=== PATIENT | male | born 1965 | race Caucasian/White ===

== ENCOUNTER 2018-03-31 12:34 | Emergency (ER) | payer OTHER ==
[~2018-03-31] VITALS: Ht 182.9 cm; Wt 100.0 kg
[2018-03-31] MEDS ORDERED: morphine 4 MG/ML inj SYRINge IV ONE ×3 (12:45→13:10)
--- NOTE | 2018-03-31 12:50 | NUR ---
pt to xray
[2018-03-31] MEDS ORDERED: HYDROmorphone 2mg/ml vial IV PRN (13:00)
[2018-03-31] MEDS ORDERED: ondansetron/PF 4mg/2ml inj IV ONE (13:05)
[2018-03-31] MEDS ORDERED: ceFAZolin 1000mg inj IV ONE (13:10)
[2018-03-31] MEDS ORDERED: HYDROmorphone 1 mg/ml syringe IV PRN (13:10)
[2018-03-31] MEDS ORDERED: TETanus/Pertussis (Acell)/Diphther VAC/PF (Tdap-Adult) 0.5ml syringe IM ONE (13:10)
[2018-03-31] MEDS ORDERED: cefazolin/dext.iso 2gm/50ml 50 ML IV ONE (13:20)
[2018-03-31 14:00] VITALS: BP 182/116
--- NOTE | 2018-03-31 14:03 | NUR ---
PT STABLE, PT EXPRESSED THAT HIS PAIN IS CONTROLLED. WOUND CLEANED AND NEW DRESSING APPLIED. PT AWAITING TRANSFER AT THIS TIME. FAMILY CALLED AND NOTIFIED.
[2018-03-31] MEDS ORDERED: HYDROmorphone 1 mg/ml syringe IV ONE ×2 (15:00→15:50)
[2018-03-31] MEDS ORDERED: LIDOcaine 1% 30ml preserv. free vial IJ STA (15:09)
--- NOTE | 2018-03-31 15:53 | NUR ---
REPORT CALLED TO ESTHELA PAC. REPORT GIVEN TO FLIGHT TEAM
== END 2018-03-31 16:07 | disposition short-term general hospital (02) ==
LOC: ER 12:34
DX: S68.125A Partial traumatic metacarpophalangeal amputation of left ring finger, initial encounter (principal); S61.217A Laceration without foreign body of left little finger without damage to nail, initial encounter; W31.2XXA Contact with powered woodworking and forming machines, initial encounter; Y93.89 Activity, other specified; Y92.69 Other specified industrial and construction area as the place of occurrence of the external cause; Y99.9 Unspecified external cause status
CPT/HCPCS: 73120; 73130; 90471; 90715; 96365; 96375; 96376; 99285; J0690; J1170; J2270; J2405; J3490

== ENCOUNTER 2024-12-05 21:54 | Inpatient (IN) | payer MEDICAID, OTHER ==
[~2024-12-05] VITALS: Ht 182.9 cm; Wt 80.0 kg
--- NOTE | 2024-12-05 22:12 | ELECTROCARDIOGRAPH REPORT ---
[facility] Test Date: 2024-12-05 Test Time: 22:10:37 Pat Name: MADALYN MERCEDES Department: EMERGENCY ROOM Room: Gender: M Supervisor Mixing: CALE : 1965 Requested By: LENNY JIMENEZ Order Number: [id number] Reading MD: Measurements Intervals [place] Rate: 87 P: -14 OH: 197 QRS: -4 QRSD: 104 T: 41 QT: 382 QTc: 460 Interpretive Statements Sinus arrhythmia Ventricular premature complex Probable left atrial enlargement Anteroseptal infarct, age indeterminate Baseline wander in lead(s) V2,V5,V6 Please click the below link to view image of tracing.
[2024-12-05] MEDS: morphine 4 MG/ML inj SYRINge IV ONE (22:53)
[2024-12-05] MEDS: glucagon, human recombinant 1mg kit IV ONE (22:53)
[2024-12-05] MEDS: ondansetron/PF 4mg/2ml inj IV ONE (22:53)
[2024-12-05] MEDS: fentaNYL/PF 50MCG/1 ML 2ML syringe IV ONE ×2 (23:05→23:29)
--- NOTE | 2024-12-05 23:06 | Physician Documentation ---
History of Present Illness ~ Chief Complaint: Chest Pain Stated Complaint: NEAR CHOKING/CP Time Seen by MD: 22:26 Mode of Arrival: EMS HPI This is a 59-year-old gentleman who presents for evaluation of substernal chest pain or foreign body sensation after he choked on a piece of chicken. He states that he had prior choking episodes. He attempted to vomit the piece of chicken the but had some blood-tinged vomit. He does have known history of esophageal varices, but denies any gross hematemesis. No palliating or aggravating factors for chest pain. No shortness a breath. He is able to control his secretions and drink, but nothing seems to be helping. This is similar to prior food bolus impaction episodes. The pain is not ripping or tearing. It isn't migratory. It isn't accompanied by focal deficits. Denies any other symptoms. Medication Reconciliation Allergies: Coded Allergies: No Known Allergies (Unverified , 03/31/18) Past Medical History Past Medical History: No Pertinent History Past Surgical History: noncontributory Alcohol Use: Occasionally Lives In: Home Review of Systems ROS 10 point review of systems was performed and unless noted above in HPI is negative for acute process/complaint. Physical Exam Vital Signs: Temperature: 98.3, Source: Oral, Heart Rate: 72, Respiratory Rate: 20, BP: 156/104, Pulse Oximetry: 100, Weight: 80.000 Physical Exam GENERAL: Awake, alert, oriented, GCS 15, no apparent distress, non-toxic appearing, answers questions, follows commands appropriately. Examined in bed 7. HEENT: Atraumatic, normocephalic, pupils equal, extraocular muscles intact, sclerae anicteric, mucus membranes moist, oropharynx is clear, no stridor. NECK: supple, full active range of motion, trachea midline, no thyromegaly, no lymphadenopathy, no JVD. CARDIOVASCULAR: regular rate/rhythm, no murmurs/gallops/rubs, Pulses are 2+ in all extremities and symmetric. Capillary refill less than 2 seconds. PULMONARY: Nonlabored, good air movement ,no respiratory distress, speaking in full sentences, clear to auscultation bilaterally, no wheezing, no ronchi, no rales, no accessory muscle use. GASTROINTESTINAL: Soft, non-tender, non-distended, normal active bowel sounds, no organomegaly, no pulsatile masses, no CVA tenderness. NEUROLOGIC: Lucid with normal mental status. Normal facial symmetry. Moves all extremities symmetrically and with purpose. No truncal ataxia. Speech is fluid without evidence of dysarthria or aphasia, no focal deficits appreciated. MUSCULOSKELETAL: There is full range of motion of all extremities. There is no joint pain or joint swelling or joint erythema. There is no muscle pain or tenderness or swelling. EXTREMITIES: warm, well-perfused, no cyanosis, no clubbing, no edema, no acute deformities. Skin: warm, dry, no rashes or lesions, no jaundice, no petechiae orpurpura. No ecchymosis. PSYCHIATRIC: Normal affect, normal insight, normal concentration. Focused exam: [] Progress Results/Orders Results/Orders Orders - LENNY JIMENEZ DO Chest,Single View (12/05/24 22:33) Hs Troponin I W Calculations (12/06/24 00:33) Completed Orders - LENNY JIMENEZ DO Electrocardiogram (12/05/24 22:08) Cbc/Diff (12/05/24 22:33) Chest,Single View (12/05/24 22:33) PBNP (12/05/24 22:33) MG (12/05/24 22:33) CMP (12/05/24 22:33) Hs Troponin I W Calculations (12/05/24 22:33) Morphine 4mg/Ml Inj. (Morphine Inj.) (12/05/24 22:35) Ondansetron Inj. (Zofran 4mg/2ml Vial) (12/05/24 22:35) Glucagon, Human Recombinant (Glucagen In (12/05/24 22:35) Fentanyl/Pf (Fentanyl 0.05 Mg/Ml Syringe (12/05/24 23:05) Fentanyl/Pf (Fentanyl 0.05 Mg/Ml Syringe (12/05/24 23:05) Medications Received in ER Medications (Trade) Dose Ordered Sig/Emil Route PRN Reason Start Time Stop Time Status Last Admin Dose Admin (morphine inj.) 4 mg ONCE ONCE IV 12/05/24 22:35 12/05/24 22:37 DC 12/05/24 22:53 4 MG (Zofran 4mg/2ml vial) 4 mg ONCE ONCE IV 12/05/24 22:35 12/05/24 22:37 DC 12/05/24 22:53 4 MG (Glucagen inj) 1 mg ONCE ONCE IV 12/05/24 22:35 12/05/24 22:37 DC 12/05/24 22:53 1 MG (fentaNYL 0.05 MG/ML syringe) 50 mcg ONCE ONCE IV 12/05/24 23:05 12/05/24 23:13 DC 12/05/24 23:29 50 MCG Vital Signs 12/05/24 12/05/24 22:11 22:20 Temp 98.3 Pulse 72 Resp 20 20 B/P (MAP) 156/104 Pulse Ox 100 Laboratory Tests Test 12/05/24 22:53 White Blood Count 6.9 Red Blood Count 4.70 Hemoglobin 14.4 Hematocrit 42.6 Mean Corpuscular Volume 90.7 Mean Corpuscular Hemoglobin 30.7 Mean Corpuscular Hemoglobin Concent 33.9 Red Cell Distribution Width 13.9 Platelet Count 203 Mean Platelet Volume 8.3 Neutrophils (%) (Auto) 63.9 Lymphocytes (%) (Auto) 22.9 Monocytes (%) (Auto) 8.9 Eosinophils (%) (Auto) 3.3 Basophils (%) (Auto) 1.0 Neutrophils # (Auto) 4.4 Lymphocytes # (Auto) 1.6 Monocytes # (Auto) 0.6 Eosinophils # (Auto) 0.2 Basophils # (Auto) 0.1 CBC Comment Sodium Level 134 L Potassium Level 3.4 L Chloride Level 99 Carbon Dioxide Level 23.0 L Anion Gap 12 Blood Urea Nitrogen 10 Creatinine 1.02 Estimated GFR/1.73 m2 74 BUN/Creatinine Ratio 9.8 L Glucose Level 97 Calcium Level 9.1 Magnesium Level 1.9 Total Bilirubin 0.9 Aspartate Amino Transf (AST/SGOT) 184 H Alanine Aminotransferase (ALT/SGPT) 122 H Alkaline Phosphatase 125 H Troponin I High Sensitivity 7 Pro-B-Type Natriuretic Peptide 95 Total Protein 7.9 Albumin 3.3 L Globulin 4.6 H Albumin/Globulin Ratio 0.7 L Chemistry Comments EKG/XRAY/CT/US/VASC/MRI EKG : Additional Comment EKG was obtained and interpreted by myself shows sinus rhythm, rate of 68, normal OH interval, borderline QRS with a incomplete right bundle, no QT prolongation, borderline left axis, no STEMI. Medical Decision Making Findings Facility Status: ED Holds, RME process The plan was discussed with the patient, who demonstrates clear understanding of the plan and is in agreement with the plan unless otherwise noted in the chart. All questions have been answered, all concerns were addressed unless otherwise documented. I was available throughout their ED stay for frequent reassessment and questions. Differential Diagnoses (considered and possible or likely): [Differential diagnosis considered includes most likely food bolus impaction, less likely chest wall pain, pleurisy, pneumonia, pulmonary embolus, GERD, esophagitis, gastritis, anxiety, stress reaction, costochondritis, acute coronary syndrome, aortic dissection, pericarditis, myocarditis, or pneumothorax.] ??Differential Diagnoses (considered and unlikely, not requiring evaluation currently): [Aortic/great vessels dissection was considered but it is unlikely based on absence of ripping, tearing, migratory chest pain, absence of syncope o r focal neurologic deficits, physical examination indicating equal and symmetric pulses.] MDM Data Please see [facility] for the following: Independent Historians and external Records Review. Historian: [Patient] Independent Historians: ?[Record review] Medication Management: [Reviewed medication list] Social History and determinants: [Reviewed] Please see the body of the note for the following: Any independent interpretations of ECG, imaging studies. All vitals signs/haemodynamics, ordered tests were independently reviewed and interpreted by myself. Nursing triage complaint and vitals reviewed, additional nursing notes were reviewed as available and I agree unless otherwise noted or documented in cont radiction in the chart Vital Signs: Independently reviewed Labs: Independently interpreted Imaging: Independently interpreted Old Medical Records: Independently reviewed, see [facility] for relevant summary and information Pulse Oximetry: [96%] interpreted as [normal on room air] by me [Net Mobile Developer: [Regular Rate, Regular rhythm, no ectopy, NSR] reviewed and interpreted by me] Additionally notably showing: [Hemodynamically stable. CBC is unremarkable, no leukocytosis. Metabolic panel notable for transaminitis and alcoholic pattern. Initial troponin and BNP are normal.] Tests considered but not ordered include: [EGD, and if necessary echo/stress test can be done on an inpatient basis] Social Determinants of Health Impact: Patient was evaluated in [facility] [place] to healthcare due to below par ratio of patient to medical providers. [] Comorbid Conditions Impacting Present Evaluation and Care/Treatment: [History of esophageal varices] Management Discussions with other Healthcare Providers: [Dr. Velasquez, gastroenterology. She feels that considering the patient is able to control his secretions, should his pain because well-controlled he should be discharged and follow-up on outpatient basis. Otherwise, she will be able to do EGD tomorrow afternoon. Hospitalist regarding admission] Treatment and Disposition Medication Management (Given or considered): [Pain management]. See EMR for details Consideration for Hospitalization/Escalation/Deescalation of Care: Admission for observation has been considered, appears to be necessary given the fact that we are not able to control his pain. ?ED Course:?[No clinical deterioration or improvement] ?Shared decision making:?[] Code status:?FULL Please see the full Electronic Medical Record for full details of nursing documentation, medications list, other records of complete past medical history and conditions, vital signs, laboratory studies, and any radiologic study interpretations by radiologists. Portions of this note were completed using [employer] dictation software and as a result there may exist minor errors in spelling. I have reviewed elements of past family and social history and agree as included in note. Departure Disposition: 09 ADMITTED INPATIENT Admitted to Inpatient Unit: to hospitalist Impression: Primary Impression: Esophageal foreign body Additional Impression: Acute chest pain Condition: Stable Referrals: NO PRIMARY CARE PROVIDER (PCP) Signature Scribe Signature: No scribe Attestation: Date: Dec 06, 2024 Time: 00:27 This note accurately reflects clinical decisions, work performed by myself, DO BARBARA Jarrett NICHOLAS M DO Dec 05, 2024 23:06
[2024-12-05 23:13] LABS: MEAN PLATELET VOLUME 8.3 FL (7.4-10.4); RED CELL DISTRIBUTION WIDTH 13.9 % (11.5-14.5)
--- NOTE | 2024-12-05 23:15 | RADIOLOGY REPORT ---
CHEST RADIOGRAPH Indication: chest pain Technique: Single frontal view of the chest was obtained COMPARISON: None FINDINGS: Lines and Tubes: None Lungs: Clear Pleura: No effusion. No pneumothorax. Cardiomediastinal contours: Unremarkable Bones: Unremarkable IMPRESSION: 1. No acute disease.
[2024-12-05 23:28] LABS: CREATININE 1.02 MG/DL (0.60-1.10); TOTAL CARBON DIOXIDE 23.0 MMOL/L (24-32); eCRCL 85 ML/MIN; eGFR 74 ML/MIN
[2024-12-05 23:34] LABS: PRO BRAIN NATRIURETIC PEPTIDE 95 PG/ML (0-125)
[2024-12-06] VITALS (22 sets, daily range): BP systolic 109–158; BP diastolic 63–100; PULSE 66–97; RESP 10–22; TEMP 97.5–99.5; O2SAT 94–100
[2024-12-06] MEDS ORDERED: dextrose 50%-water 50ml dispensing syringe IV PRN (01:05)
[2024-12-06] MEDS ORDERED: potassium Cl 40MEQ/1/2NS 520ml 520 ML IV PRN (01:05)
[2024-12-06] MEDS ORDERED: magnesium hydroxide 30ml (MOM) UD suspension PO PRN (01:05)
[2024-12-06] MEDS ORDERED: potassium Cl 20 mEq SR tablet PO PRN ×2 (01:05)
[2024-12-06] MEDS ORDERED: metoclopramide 5 mg/ml inj IV PRN (01:05)
[2024-12-06] MEDS ORDERED: magnesium sulf-water 2g/50mL 50 ML IV PRN (01:05)
[2024-12-06] MEDS ORDERED: magnesium sulf-water 4G/100mL 100 ML IV PRN (01:05)
[2024-12-06] MEDS ORDERED: magnesium Cl slow-release 64mg tablet PO PRN (01:05)
[2024-12-06] MEDS ORDERED: mag hydrox/Alum hydrox/simeth 30ml oral suspension PO PRN (01:05)
[2024-12-06] MEDS ORDERED: diazepam inj 5 MG/ML inj. IV PRN (01:05)
--- NOTE | 2024-12-06 01:31 | HISTORY AND PHYSICAL-Residence ---
History & Physical Providers to CC Resident Creating Document: RIRI BOLAND RES ~ History of Present Illness Reason for Admit\Complaint: Food impaction History of Present Illness This is a 59-year-old male patient with a medical history of hypertension, hyperlipidemia, and alcohol use disorder. He presented to the emergency department with acute food impaction. The patient reported that he ingested a large piece of chicken without chewing at around 8:00 p.m. yesterday, which was followed by severe and intractable epigastric pain. He has experienced multiple episodes of food impaction in the past, but none as severe as this incident. The patient had an endoscopy four months ago to monitor esophageal varices and was noted to have a stricture in the gastroesophageal transition. He induced vomiting twice, which resulted in traces of blood. In the emergency room, he was treated with morphine and fentanyl but experienced minimal relief. The pain he is experiencing is intense in the epigastric region, without radiation, and has no identifiable relieving or worsening factors. He is also in severe distress, walking back and forth in the room and screaming in pain. Additionally, he reports heavy alcohol consumption, stating that his last drink was three days ago. Since then, he has been unable to sleep and has been experiencing watery diarrhea. No other symptoms have been reported at this time Allergies: Coded Allergies: No Known Allergies (Unverified , 03/31/18) Past Medical History Past Medical History Hypertension Hyperlipidemia Alcohol use disorder Esophageal varices Past Surgical History Surgical History Comment Left hand Right biceps Past Social History Smoking: Non-Smoker Alcohol Use: Heavy (Patient drinks at least four beers daily) Drug Use: None Lives with: Other Lives In: Home ROS Constitutional: Denies: no symptoms reported, see HPI, chills, diaphoresis, fever, malaise, weakness, other Eyes: Denies: no symptoms reported, see HPI, pain, discharge, blurred vision, double vision, itching, photophobia, redness, tearing, other ENT: Denies: no symptoms reported, see HPI, ear pain, ear bleeding, ear discharge, hearing loss, ear ringing, nose pain, nose bleeding, nose congestion, nose discharge, throat pain, throat swelling, voice change, mouth pain, mouth bleeding, mouth swelling, other Respiratory: Reports: shortness of breath Cardiovascular: Reports: chest pain Gastrointestinal: Reports: see HPI, abdomen distended, abdominal pain, nausea, vomiting, diarrhea Genitourinary: Denies: no symptoms reported, see HPI, burning, discharge, dysuria, frequency, flank pain, hematuria, incontinence, pain, decreased urine output, urgency, other Male Genitalia: Denies: no symptoms reported, see HPI, penile discharge, penile sore, testicular pain, testicular swelling, other Neurological: Denies: no symptoms reported, see HPI, speech problem, headache, dizziness, fainting, tingling, left sided numbness, right sided numbness, left sided weakness, right sided weakness, problems walking, unable to move lower ext, unable to move upper ext, petit mal seizures, tonic-clonic seizures, cognitive dysfunction, other Musculoskeletal: Denies: no symptoms reported, see HPI, pain, swelling, back pain, gout, joint pain, joint swelling, muscle pain, muscle swelling, muscle stiffness, neck pain, other Integumentary: Denies: no symptoms reported, see HPI, rash, itching, lesions, lumps, bruise(s), wound(s), laceration(s), dryness, change in color, other Allergic/Immunologic: Denies: no symptoms reported, see HPI, hives, itching, frequent infections, difficulty healing, other Hematologic/Lymphatic: Denies: no symptoms reported, see HPI, anemia, blood clots, easy bleeding, easy bruising, swollen glands, other Endocrine: Denies: no symptoms reported, see HPI, excessive sweating, flushing, intolerance to cold, intolerance to heat, increased hunger, increased thrist, increased urine, unexplained weight gain, unexplained weight loss, other Psychiatric: Denies: no symptoms reported, see HPI, depression, anxiety, sleeplessness, hopeless, suicidal, hallucinations, other Exam Vitals: Vital Signs Date Time Temp Pulse Resp B/P (MAP) Pulse Ox O2 Delivery O2 Flow Rate FiO2 12/05/24 22:20 20 12/05/24 22:11 98.3 72 100 General: Awake , alert, and oriented x4, agitated and distressed due to epigastric pain HEENT: Atraumatic, normocephalic, EOMI, anicteric sclera ; pink conjunctiva Neck: Trachea midline. Supple, full range of motion, no JVD Cardiac: Regular rhythm, regular rate with no murmurs all over the precordium. Respiratory: Equal breath sounds bilaterally, no tachypnea, no wheezing ,rub or rales, Chest wall is symmetric and without deformity. Gastrointestinal: Abdomen symmetric, non-distended, soft, mildly tender in the epigastric region, normal bowel sounds x4 quadrant, normoactive, no hepatosplenomegaly Musculoskeletal: No pedal edema Neurological: Mental status exam: Distressed and agitated, alert and consciousness, normal orientation, memory and speech - Cranial nerve test: Cranial nerves 2-12 intact - Motor system: Normal Nutrition, normal tone, Power 5/5, no involuntary movements - Sensory system: Intact - Reflex testing: Biceps, triceps and knee reflexes 2+ - Cerebellar: Normal Skin: Warm and dry Diagnostic Data Last Recorded Lab Results: 12/06/2412512/06/24125 Advance Care Planning Advanced Care plannin - 30 Minutes (The advanced care directives were discussed, and the patient has requested a full code status.) Additional Plan Assessment: A 59-year-old male patient has been admitted due to intractable epigastric pain and food impaction. 1. Esophageal Food Impaction Minimal upper gastrointestinal bleeding The patient reports severe epigastric pain that began after ingesting chicken without chewing. He has a history of gastroesophageal stricture and previous episodes of food impaction. Induced vomiting produced a trace of blood, but there was no significant hematemesis. - Chest X-ray: No acute disease was identified. - Vital signs: Stable - White Blood Cell count: 6.9 - Troponin: Negative - K 3.4, Na 134 Plan: - Nothing by mouth - Gastroenterology consultation - Esophagogastroduodenoscopy planned for the morning - Pain management with Dilaudid - Agitation control - Pantoprazole 40 mg IV - Lactated Ringer's solution at 100 mL/hour - Replace potassium per protocol 2. Alcohol Steatohepatitis - Alcohol use disorder - Esophageal varices, possibly associated with cirrhosis The patient has a long-standing history of alcohol abuse, currently consuming at least four 20 oz beers daily, with his last drink 3 days ago. He reports insomnia and diarrhea following his last drink. Laboratory results show the following: - AST: 184 - ALT: 122 - Alkaline phosphatase: 125 - Bilirubin: 0.9 These findings are consistent with alcohol use. Plan: - Amylase, lipase, and INR tests ordered - Abdominal ultrasound ordered - Placed on an alcohol withdrawal protocol - Thiamine and folic acid supplementation - Consultation with long term care social worker and a substance use navigator 3. Hyperlipidemia Hypertension - Lipid panel ordered - Medication reconciliation pending Code Status: Full code DVT Prophylaxis: Enoxaparin Analgesia/Sedation: Dilaudid Line/Tube: PIV GI Prophylaxis: Pantoprazole Nutrition: NPO Prognosis: Guarded Physical Therapy: Not needed Disposition: Admit to orthopedic floor. EGD is planned for the morning. Resident attestation The above note has been reviewed and supervised by a senior resident PGY2/PGY3 Patient was seen, examined and discussed with the attending physician Date of Service: Dec 06, 2024 Billing Provider: EDDI LAI MD Addendum Attestation I agree with the residents assessment and plan as below: 59 year old male with hx of etoh use disorder admitted with epigastric pain after eating suspected to have food impaction Plan: mIVF NPO GI consult plan for EGD RUQ ultrasound CCT 55 min using HIPPA compliant A/V technology RIRI BOLAND, RES Dec 06, 2024 01:31 EDDI LAI MD Dec 06, 2024 08:43
[2024-12-06] MEDS: ondansetron/PF 4mg/2ml inj IV SCH (01:39)
[2024-12-06 01:44] LABS: MEAN PLATELET VOLUME 8.3 FL (7.4-10.4); RED CELL DISTRIBUTION WIDTH 13.9 % (11.5-14.5)
[2024-12-06 01:51] LABS: INR 1.0 INR
[2024-12-06] MEDS: diazepam inj 5 MG/ML inj. IV ONE (01:52)
[2024-12-06] MEDS: HYDROmorphone inj. 0.5 MG/0.5 ML DISP.SYRIN IV PRN (01:52)
[2024-12-06 01:57] LABS: ETHANOL < 10 MG/DL (<10)
[2024-12-06] MEDS: ringers solution, lacted 1,000 ML IV SCH (01:57)
[2024-12-06] MEDS ORDERED: ATOR-2 PO (02:12)
[2024-12-06] MEDS ORDERED: AMLO5TAB16 PO (02:12)
[2024-12-06] MEDS ORDERED: PROP10TA10 PO (02:12)
[2024-12-06] MEDS ORDERED: GABA300T28 PO (02:12)
[2024-12-06] MEDS ORDERED: EZET10TA80 PO (02:12)
[2024-12-06] MEDS ORDERED: IBUP-1984 PO (02:12)
[2024-12-06] MEDS: enoxaparin 40mg/0.4ml syringe SUBCUT SCH (07:32)
[2024-12-06] MEDS: thiamine 100mg/ml 2ml inj. IV SCH (07:33)
[2024-12-06] MEDS: HYDROmorphone/PF 0.2 MG/ML SYRINGE IV PRN (07:33)
[2024-12-06] MEDS: K and/or MAG REPLACEMENT MC SCH (08:00)
[2024-12-06] MEDS: docusate sod 100mg capsule PO SCH (08:00)
[2024-12-06] MEDS: folic acid 1mg/0.2ml inj IV SCH (08:00)
[2024-12-06] MEDS: haloperidol lactate 5mg/ml inj IM PRN (10:49)
[2024-12-06] MEDS: morphine 4 MG/ML inj SYRINge IV PRN (12:46)
--- NOTE | 2024-12-06 13:18 | RADIOLOGY REPORT ---
CLINICAL INFORMATION: Alcohol use disorder. TECHNIQUE: Grayscale sonographic imaging of the right upper quadrant of the abdomen was performed, assisted by color Doppler techniques. COMPARISON: None FINDINGS: The gallbladder wall measures 1.8 mm in thickness, within normal limits. No stones are seen.Negative reported sonographic Preciado's sign. The common bile duct measures 5.7 mm in diameter, within normal limits. Increased echogenicity of the liver suggesting hepatic steatosis. Liver is within normal limits in size, measuring up to 15.4 cm in craniocaudal dimension. Portal vein is patent with normal hepatopetal flow. Pancreas is obscured by bowel gas. The right kidney measures 10.2 cm. There is no hydronephrosis. Right renal cortical echogenicity and cortical thickness are within normal limits. IMPRESSION: 1. No sonographic evidence of acute cholecystitis. 2. Hepatic steatosis.
[2024-12-06] MEDS ORDERED: hydrALAZINE 20mg/ml inj. IV PRN (16:15)
[2024-12-06] MEDS ORDERED: morphine 4 MG/ML inj SYRINge IV PRN ×2 (16:15)
[2024-12-06] MEDS ORDERED: fentaNYL/PF 50MCG/1 ML 2ML syringe IV PRN ×2 (16:15)
[2024-12-06] MEDS ORDERED: ondansetron/PF 4mg/2ml inj IV PRN (16:15)
[2024-12-06] MEDS ORDERED: labetalol 20mg/4ml (5mg/ml) syringe IV PRN (16:15)
[2024-12-06] MEDS ORDERED: ringers solution, lacted 1,000 ML IV SCH (16:15)
[2024-12-06] MEDS ORDERED: fentaNYL/PF 50MCG/1 ML 2ML syringe ONE ×2 (16:52→16:54)
[2024-12-06] MEDS ORDERED: midazolam 1 mg/ML 2ml injection ONE (16:52)
[2024-12-06] MEDS ORDERED: propofol 10mg/ml 20ml vial IV ONE (17:12)
[2024-12-06] MEDS ORDERED: succinylcholine 20mg/ml inj IV ONE (17:12)
[2024-12-06] MEDS ORDERED: desflurane 240ml liquid inh. IH ONE (17:12)
--- NOTE | 2024-12-07 03:38 | CONSULTATION ---
DATE OF CONSULTATION: 12/06/2024 DICTATING PHYSICIAN: Aj Brooks MD REASON FOR CONSULTATION: Epigastric pain. HISTORY OF PRESENT ILLNESS: The patient is 59 years old with history of hypertension and hyperlipidemia with alcohol use disorder. Apparently, came in with dysphagia and a feeling of food impaction yesterday in the Emergency Department. When he came to the Emergency Department, initial measures of glucagon, etc., relieved food impaction. The patient apparently swallowed the food and was in no discomfort. The patient also was able to swallow water and the Emergency Department doctor told me that he will discharge the patient and make an outpatient appointment with me. However, I was called for a consult this afternoon because the patient was admitted because of epigastric pain. The nurse also called me that the patient is refusing to drink water, although comfortable. I was called in to do an urgent endoscopy. The patient, however, has no discomfort. He is alert and oriented and reports no symptoms of food impaction and esophageal obstruction. He, however, complains of epigastric pain. Apparently, he has a history of esophageal stricture, but no further report available. PAST MEDICAL HISTORY: Hypertension, hyperlipidemia, and alcohol use disorder. FAMILY HISTORY: Noncontributory. PERSONAL HISTORY: Noncontributory. REVIEW OF SYSTEMS: A 12-point review of systems is same as history of present illness. PHYSICAL EXAMINATION: GENERAL: He is awake, alert, and appears to be in no apparent distress. Friendly and cooperative. VITAL SIGNS: Normal. HEAD AND NECK: Supple. No thyromegaly. No JVD. No significant lymphadenopathy. Oral cavity is within normal limits. HEART AND LUNGS: Normal. ABDOMEN: Soft, nontender. No masses. No organomegaly. Bowel sounds are present. EXTREMITIES: Reveal no clubbing, cyanosis or edema. NEUROLOGIC: Cranial nerves bilaterally within normal limits. HEMATOLOGIC: Reveals no anemia, petechiae or purpura. PSYCHOLOGICAL: Within normal limits. LABORATORY VALUES: Normal. IMAGING: Because of the abdominal pain, he had an ultrasound of the abdomen, which was essentially unremarkable. IMPRESSION: The patient with history of dysphagia, apparently with food impaction, came into the hospital; however, relieved by itself. The patient was admitted because of persistent epigastric pain. Sonographic evidence reveals no acute cholecystitis or no stones. There is some hepatic steatosis. The patient does have epigastric pain and gastritis is a likely possibility. Peptic ulcer disease is another possibility. RECOMMENDATIONS: We will further evaluate with endoscopy. I doubt that he has food impaction; however, with the symptoms, we will proceed with endoscopy and make further recommendations. Risks and benefits were explained, understands and wishes to proceed. Continue current management. Aj Brooks MD TID: [id number] RECEIPT: [id number] RONAL/JESSIE
[2024-12-07 06:00] VITALS: BP 124/91; PULSE 90; RESP 16; TEMP 97.4; O2SAT 96
[2024-12-07 06:02] LABS: MEAN PLATELET VOLUME 8.3 FL (7.4-10.4); RED CELL DISTRIBUTION WIDTH 14.4 % (11.5-14.5)
[2024-12-07 06:12] LABS: INR 1.0 INR
[2024-12-07 06:23] LABS: CHOL/HDL RATIO 4.2 (0.00-4.99); CREATININE 1.10 MG/DL (0.60-1.10); LDL CHOLESTEROL 120 MG/DL (50-100); PHOSPHORUS 3.0 MG/DL (2.3-4.5); TOTAL CARBON DIOXIDE 24.5 MMOL/L (24-32); eCRCL 78 ML/MIN; eGFR 68 ML/MIN
--- NOTE | 2024-12-07 10:58 | DISCHARGE SUMMARY ---
Discharge Summary Providers to CC ~ Discharge Summary Admission Diagnosis: ESOPHAGEAL FOOD IMPACTION Hospital Course DATE OF ADMISSION: 12/06/2024 DATE OF DISCHARGE: 12/07/2024 Discharge Diagnosis\\Comment: Esophageal food impaction likely secondary to stricture, alcohol steatohepatitis, esophageal varices, hyperlipidemia, hypertension Operations\\Procedures: EGD with dilatation Consultants: Dr Brooks briquette maker Complications: Unknown the patient left AMA Condition on DC: Stable Discharge Summary: The patient is admitted by resident physician RIRI Schwartz , under the supervision of EDDI Sanchez MD with the following HPI:"This is a 59-year-old male patient with a medical history of hypertension, hyperlipidemia, and alcohol use disorder. He presented to the emergency department with acute food impaction. The patient reported that he ingested a large piece of chicken without chewing at around 8:00 p.m. yesterday, which was followed by severe and intractable epigastric pain. He has experienced multiple episodes of food impaction in the past, but none as severe as this incident. The patient had an endoscopy four months ago to monitor esophageal varices and was noted to have a stricture in the gastroesophageal transition. He induced vomiting twice, which resulted in traces of blood. In the emergency room, he was treated with morphine and fentanyl but experienced minimal relief. The pain he is experiencing is intense in the epigastric region, without radiation, and has no identifiable relieving or worsening factors. He is also in severe distress, walking back and forth in the room and screaming in pain. Additionally, he reports heavy alcohol consumption, stating that his last drink was three days ago. Since then, he has been unable to sleep and has been experiencing watery diarrhea. No other symptoms have been reported at this time." The patient was evaluated by briquette maker and went for an EGD at this juncture I do not have the report available however per Dr. Muse hospitalist following the patient on the the patient had esophageal strictures and had dilatation of the esophagus which he has had previously. I received a page at 07:20 AND A MORNING OF THE THAT THE PATIENT WANTED TO BE DISCHARGED BY 8:00 AM. I spoke with the patient's RN and I informed her that I could not make it to the surgery floor for a couple of hours and informed the patient that I would evaluate him this morning however the patient had subsequently left AMA at 7:40 a.m. the patient did have a drop in his hemoglobin from the 12th to 13th from 15.6-13.3. The patient has not seen prior to leaving AMA *Problems/Diagnosis: (1) Esophageal foreign body Status: Acute Total Time Spent on D/C: Up to 30 Minutes Date of Service: Dec 07, 2024 Billing Provider: LISA NASCIMENTO DO Common Visit Codes: NOT BILLABLE (Left AMA prior to being seen) LISA NASCIMENTO DO Dec 07, 2024 10:58
== END 2024-12-07 07:35 | disposition left against medical advice (07) | DRG 254 ==
LOC: ER 21:55 → ED HOLD 12-06 01:14 → EDBEDREQ 12-06 02:40 → ORTHO 4S 12-06 03:13
PROVIDERS: ADMIT Internal Medicine; ATTEND Family Medicine
PROC: 0DB78ZX Excision of Stomach, Pylorus, Via Natural or Artificial Opening Endoscopic, Diagnostic (ICD-10-PCS; 2024-12-06)
PROC: 0DB68ZX Excision of Stomach, Via Natural or Artificial Opening Endoscopic, Diagnostic (ICD-10-PCS; principal; 2024-12-06 17:02)
DX: T18.128A Food in esophagus causing other injury, initial encounter (principal); K29.80 Duodenitis without bleeding; K22.2 Esophageal obstruction; E78.5 Hyperlipidemia, unspecified; I10 Essential (primary) hypertension; K25.9 Gastric ulcer, unspecified as acute or chronic, without hemorrhage or perforation; K21.00 Gastro-esophageal reflux disease with esophagitis, without bleeding; K31.89 Other diseases of stomach and duodenum; I85.00 Esophageal varices without bleeding; Z53.21 Procedure and treatment not carried out due to patient leaving prior to being seen by health care provider; W44.F3XA Food entering into or through a natural orifice, initial encounter; Y93.89 Activity, other specified; Y92.89 Other specified places as the place of occurrence of the external cause; Y99.8 Other external cause status
CPT/HCPCS: 36415; 43239; 43247; 71045; 76700; 80053; 80061; 80320; 82150; 82948; 82977; 83690; 83735; 83880; 84100; 84132; 84484; 85025; 85027; 85610; 87081; 93005; 96374; 96375; 99285; A4615; A4620; A6449; G0378; J0330; J1171; J1610; J1630; J1650; J2250; J2270; J2405; J2470; J2704; J3010; J3360; J3411; J3490; J7120